=== PATIENT | male | born 1980 | race American Indian/Alaskan Native ===

== ENCOUNTER 2018-02-18 11:10 | Outpatient (CLI) | payer BC ==
--- NOTE | 2018-02-18 15:19 | Fluoroscopy Report ---
UPPER GI SERIES: History: Iron deficiency anemia, H. pylori infection. Examination of the esophagus demonstrates normal distension and Motility. The stomach and duodenal bulb demonstrate normal contours with no mucosal abnormalities. There is normal passage of barium through the stomach and duodenum. 11 fluoroscopic images were captured. One episode of gastroesophageal reflux to the proximal esophagus was witnessed during this exam. IMPRESSION: Gastroesophageal reflux disease. SMALL BOWEL SERIES: Barium passes through the small bowel in a normal transit time. There is a normal mucosal pattern with no contour abnormalities identified. IMPRESSION: Normal study.
== END 2018-02-18 11:11 | disposition home or self-care (01) ==
LOC: FLUORO 11:10
PROVIDERS: ATTEND Internal Medicine Gastroenterology
DX: K21.9 Gastro-esophageal reflux disease without esophagitis (principal); A04.8 Other specified bacterial intestinal infections
CPT/HCPCS: 74249

== ENCOUNTER 2018-03-31 16:58 | Emergency (ER) | payer BC ==
[2018-03-31 17:16] VITALS: BP 125/84
--- NOTE | 2018-03-31 17:52 | Emergency Department Report ---
ED Eye Problem HPI - General Chief complaint: Eye Problems Stated complaint: SWOLLING RIGHT EYE Time Seen by Provider: 03/31/18 17:35 Source: patient Mode of arrival: Ambulatory Limitations: No Limitations - History of Present Illness Initial comments: Patient is a 37-year-old -[place] male who 3 days ago was in his lawn and B or wasp stung him on the right eye. He knocked it off is actually stung him again on the left back. Patient says his head a amount of swelling to the upper and lower eyelid on the right eye. Eyes closed shut secondary to swelling. Patient has no pain with his Jackson movements. Patient denies any fevers chills nausea vomiting at this time. - Related Data Previous Rx's Medication Instructions Recorded Last Taken Type Clindamycin [Clindamycin CAP] 300 mg PO Q8H 7 Days cap 03/31/18 Unknown Rx Ibuprofen [Motrin] 600 mg PO Q8H PRN #20 tablet 03/31/18 Unknown Rx diphenhydrAMINE [Benadryl CAP] 25 mg PO Q6HR PRN #20 capsule 03/31/18 Unknown Rx predniSONE [Deltasone] 20 mg PO QDAY #5 tab 03/31/18 Unknown Rx traMADol [Ultram] 50 mg PO Q6HR PRN #10 tablet 03/31/18 Unknown Rx Allergies Allergy/AdvReac Type Severity Reaction Status Date / Time No Known Allergies Allergy Unverified 02/18/18 11:10 ED Review of Systems ROS: Stated complaint: SWOLLING RIGHT EYE Other details as noted in HPI Comment: All other systems reviewed and negative ED Past Medical Hx - Past Medical History Previous Medical History?: Yes Additional medical history: "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" - Surgical History Past Surgical History?: Yes Additional Surgical History: left wrist, Colonoscopy, EGD - Social History Smoking Status: Never Smoker Substance Use Type: Alcohol - Medications Home Medications: Home Medications Medication Instructions Recorded Confirmed Last Taken Type Clindamycin [Clindamycin CAP] 300 mg PO Q8H 7 Days cap 03/31/18 Unknown Rx Ibuprofen [Motrin] 600 mg PO Q8H PRN #20 tablet 03/31/18 Unknown Rx diphenhydrAMINE [Benadryl CAP] 25 mg PO Q6HR PRN #20 capsule 03/31/18 Unknown Rx predniSONE [Deltasone] 20 mg PO QDAY #5 tab 03/31/18 Unknown Rx traMADol [Ultram] 50 mg PO Q6HR PRN #10 tablet 03/31/18 Unknown Rx ED Physical Exam - General Limitations: No Limitations General appearance: alert, in no apparent distress - Head Head exam: Present: atraumatic, normocephalic - Eye Eye exam: Present: PERRL, EOMI, periorbital swelling, periorbital tenderness ( erythema and warmth). Absent: normal appearance - ENT ENT exam: Present: mucous membranes moist - Neck Neck exam: Present: normal inspection - Respiratory Respiratory exam: Present: normal lung sounds bilaterally. Absent: respiratory distress - Cardiovascular Cardiovascular Exam: Present: regular rate, normal rhythm. Absent: systolic murmur, diastolic murmur, rubs, gallop - GI/Abdominal GI/Abdominal exam: Present: soft, normal bowel sounds - Rectal Rectal exam: Present: deferred - Extremities Exam Extremities exam: Present: normal inspection - Back Exam Back exam: Present: normal inspection - Neurological Exam Neurological exam: Present: alert, oriented X3 - Psychiatric Psychiatric exam: Present: normal affect, normal mood - Skin Skin exam: Present: warm, dry, intact, normal color. Absent: rash ED Course Vital Signs 03/31/18 17:13 Temperature 99.2 F Pulse Rate 64 Respiratory 18 Rate Blood Pressure 125/84 O2 Sat by Pulse 99 Oximetry Critical care attestation.: If time is entered above; I have spent that time in minutes in the direct care of this critically ill patient, excluding procedure time. ED Disposition Clinical Impression: Sting, wasp, Periorbital cellulitis of right eye Disposition: DC-01 TO HOME OR SELFCARE Is pt being admited?: No Does the pt Need Aspirin: No Condition: Stable Instructions: Cellulitis (ED), Insect Bite or Sting (ED) Prescriptions: Clindamycin [Clindamycin CAP] 300 mg PO Q8H 7 Days cap diphenhydrAMINE [Benadryl CAP] 25 mg PO Q6HR PRN #20 capsule PRN Reason: Itching Ibuprofen [Motrin] 600 mg PO Q8H PRN #20 tablet PRN Reason: Pain predniSONE [Deltasone] 20 mg PO QDAY #5 tab traMADol [Ultram] 50 mg PO Q6HR PRN #10 tablet PRN Reason: Pain Referrals: PRIMARY CARE,MD [Primary Care Provider] - 3-5 Days Forms: Work/School Release Form(ED)
== END 2018-03-31 18:07 | disposition home or self-care (01) ==
LOC: ED 16:58
DX: L03.213 Periorbital cellulitis (principal); W57.XXXA Bitten or stung by nonvenomous insect and other nonvenomous arthropods, initial encounter; Y93.89 Activity, other specified; Y99.8 Other external cause status; Y92.89 Other specified places as the place of occurrence of the external cause
CPT/HCPCS: 99282